=== PATIENT | female | born 1950 ===

== ENCOUNTER 2021-03-11 10:57 | Outpatient (CLI) | payer OTHER | END 2021-03-15 08:00 | disposition home or self-care (01) | LOC: RAD 10:57 → TOM 10:57 → RAD 03-15 08:00 | PROVIDERS: ATTEND Surgery | DX: K59.02 Outlet dysfunction constipation (principal); K57.30 Diverticulosis of large intestine without perforation or abscess without bleeding; R10.32 Left lower quadrant pain ==